=== PATIENT | female | born 1940 | race Caucasian/White ===

== ENCOUNTER 2016-08-13 16:50 | Emergency (ER) | payer OTHER, MEDICARE ==
[~2016-08-13] VITALS: Ht 165.1 cm; Wt 131.5 kg
[~2016-08-13 16:50] MED LIST: ALBUTEROL 3 ML3 ML INH; ALLEGRA180 MG PO; AMARYL4 MG PO; AMLODIPINE10 MG PO; ATORVASTATIN CA10 MG PO; BAYER ASPIRIN C81 MG PO; COMBIVENT1 ARO INH; HYTRIN5 MG PO; JANUVIA 100MG100 MG PO; KLOR-CON20 MEQ PO; LASIX40 MG PO; LOMOTIL 0.025 M1 TAB PO; NORVASC 5MG TAB5 MG PO; PREDNISONE 10MG10 MG PO; PREDNISONE10 MG PO; SINGULAIR10 MG PO; SPIRIVA 18 MCG18 MCG INH; SYMBICORT 160/41 PUF INH; SYNTHROID0.15 MG PO; VASOTEC20 MG PO
--- NOTE | 2016-08-13 17:14 | ED SKIN/ALLERGY COMPLAINT ---
History of Present Illness General Chief Complaint: General Adult Stated Complaint: ?INFECTED SUTURE SITE Source: patient, old records Exam Limitations: no limitations Vital Signs & Intake/Output Vital Signs & Intake/Output Vital Signs Date Time Temp Pulse Resp B/P B/P Pulse O2 O2 Flow FiO2 Mean Ox Delivery Rate 08/13 1753 98.3 101 24 153/75 92 Nasal 2.0L Cannula 08/13 1747 92 Nasal 2.0L Cannula 08/13 1738 Nasal 2.0L Cannula 08/13 1659 98.5 106 20 177/80 92 Nasal 3.0L Cannula ED Intake and Output 08/14 0000 08/13 1200 Intake Total Output Total Balance Patient 290 lb Weight Weight Estimated Measurement Method Allergies Coded Allergies: MDX - Morphine (UNKNOWN 03/03/11) OPIATE DERIVATIVES - MAKE HER LOOPY MDX - Opioid (Opioid) (MAKES HER 'LOOPY' 03/03/11) Reconcile Medications Albuterol Sulfate (Proventil) 2.5 MG/3 ML NEB 3 ML INH BID PRN COPD (Reported ) Amlodipine Besylate (Amlodipine) 10 MG TAB 1 TAB PO DAILY HTN Aspirin (Aylin Chewable Aspirin) 81 MG TAB.CHEW 1 TAB PO DAILY HEART HEALTH ( Reported) Atorvastatin Calcium (Lipitor) 10 MG TABLET 1 TAB PO DAILY CHOLESTEROL ( Reported) Budesonide/Formoterol Fumara (Symbicort 160-4.5 Mcg Inhaler) 160 MCG/4.5 MCG PUF 2 PUF INH TID COPD (Reported) DIPHENOXYLATE HCL/ATROPINE (Lomotil 2.5-0.025 MG Tablet) 2.5 MG-0.025 MG TABLET 1 TAB PO Q4 HRS NEEDED PRN DIARRHEA (Reported) Fexofenadine Hydrochloride (Lachelle) 180 MG TAB 1 TAB PO DAILY ALLERGIES ( Reported) Furosemide (Lasix) 40 MG TABLET 30 MG PO DAILY FLUID (Reported) Glimepiride (Amaryl) 4 MG TAB 1 TAB PO BID DM (Reported) IPRATROPIUM/ALBUTEROL SULFATE (Combivent Inhaler) 14.7 GM AER.W.ADAP 2 PUF INH 4 TIMES/DAY COPD (Reported) Levothyroxine Sodium (Synthroid) 0.15 MG TAB 0.15 MG PO DAILY AC THYROID ( Reported) Montelukast Sodium (Singulair) 10 MG TABLET 1 TAB PO DAILY COPD (Reported) Potassium Chloride (Klor-Con) 20 MEQ PDS 1 TAB PO DAILY SUPPLEMENT (Reported) Prednisone 10 MG TABLET 1 TAB PO 3XW INFLAMMATION (Reported) PLEASE RESTART TAKING PREDNISONE 10 MG THREE TIMES A WEEK AFTER YOU COMPLETE THE PREDNISONE TAPER GIVEN TO YOU. Prednisone 10 MG TAB 0 PO TAPER SWELLING OF TONGUE On Take 07/18 6 TABS 07/19-05/22 5 TABS 07/21-07/22 4 TABS 07/23-07/24 3 TABS 07/25-07/26 2 TABS 07/27-07/28 1 TAB THEN STOP Terazosin Hydrochloride (Hytrin) 5 MG CAP 1 TAB PO DAILY BP (Reported) Tiotropium Whitetail (Spiriva) 18 MCG CAP.W.DEV 1 CAP INH DAILY COPD (Reported) Triage Note: PT TO ED C/O ? INFECTION TO SUTURE SITE. PT HAD MOLL REMOVED NEAR/UNDER LEFT BREAST [address] TORRES. WAS SUPPOSED TO HAVE A F/U APPT LAST WEEK, BUT IT GOT CANCELLED. PT HAS NEW APPT ON TUESDAY 08/15. STATES SITE IS RED AND "ANGRY". DESCRIBES TENDER AND ACHY. HAD TEMP AT HOME OF 99.3, PT STATES "THAT IS A SLIGHT FEVER FOR ME". PT TAKEN TO ROOM 16 VIA W/C FOR PROVIDER EVAL. Triage Nurses Notes Reviewed? yes Onset: Abrupt Duration: week(s): (05/08), constant, getting worse Timing: recent history Severity: moderate Severity Numbers: 6 Location: torso No Modifying Factors: none Associated Symptoms: denies HPI: 76-year-old female with history of COPD on O2 2 L colon cancer, hypertension and high cholesterol presents the ER for evaluation with family complaining of a questionable infected suture site. The patient states 3 weeks ago she had a mole removed by Dr. torres. She states that she was unable to make her appointment 3 days ago for the sutures are BE removed and is scheduled to see him in 2 days. She states however for the past 2-1/2 weeks it has been progressively more red and painful and sensitive patient denies any discharge or bleeding. The patient reports to low-grade fevers at home of 99.3 which she states is a fever for her. She denies any other rashes to her skin. She denies shortness of breath worse than normal no cough congestion chest pain abdominal pain nausea or vomiting. She states she had amoxicillin left over which she took one dose of 3 days ago. (MORENA LUNDBERG) Past History Travel History Traveled to [place] past 21 day No Medical History Any Pertinent Medical History? see below for history Cardiovascular: hypertension, hyperlipidemia Respiratory: bronchitis, COPD, obstructive sleep apnea, CPAP AT NIGHT o2 2L Gastrointestinal: SBO COLON RESECTION DOROTHY Renal: ONLY 1 FUNCTIONING KIDNEY Musculoskeletal: osteoarthritis, SHERICE KNEE REPLACEMENTS SHERICE SHOULDER REPLACEMENTS Psychiatric: anxiety Endocrine: diabetes, hypothyroidism Blood Disorders: anemia Cancer(s): colon/rectal cancer, BASAL CELL CARCINOMA History of MRSA: No History of VRE: No History of CDIFF: No Pneumonia Vaccine: 01/01/05 Surgical History Surgical History: colon resection Psychosocial History Who do you live with Spouse Services at Home None What is your primary language Thai Tobacco Use: Quit >30 days ago ETOH Use: occasional use Illicit Drug Use: denies illicit drug use Family History Family History, If Any: patient was adopted Relation not specified for: *No pertinent family history Hx Contributory? No (MORENA LUNDBERG) Review of Systems Review of Systems Constitutional: Reports: see HPI. All Other Systems: Reviewed and Negative Comments Review of systems: See HPI, All other systems negative. Constitutional, no chills no fever, no malaise no weight loss HEENT: no sore throat no congestion Cardiovascular: No chest pain , no palpitation , no orthopnea Skin: see hpi Respiratory: No dyspnea no cough no sputum no hemoptysis GI: No nausea no vomiting, no diarrhea, no bloating/constipation : No dysuria No hematuria, no frequency, no discharge Muscle skeletal: No joint pain, no joint swelling, no back pain, no neck pain, Neurologic: No numbness no confusion, no headache Psych: No stress no depression,. Heme/endocrine: No bruising no bleeding Immunology: No lymphadenopathy (MORENA LUNDBERG) Physical Exam Physical Exam General Appearance: well developed/nourished, alert, awake Comments: Well-developed well-nourished patient in no apparent distress. HEENT: Atraumatic, extraocular motion intact Neck: Supple, FROM Back: FROM Cardiovascular: Regular rate and rhythms no murmurs rubs or gallops, Respiratory: Chest nontender.There were no bony deformities, no asymmetry. No respiratory distress. Patient speaking in full complete sentences. Wheezing bilaterally no rhonchi no rales Extremities: full range of motion Neuro: awake, alert, and oriented to person, place and time. There were no obvious focal neurologic abnormalities. Skin: Warm & dry; there is a 6 cm area of erythema surrounding these running sutures which appear intact there is no induration or fluctuance mild tenderness to palpation no discharge elicited no bleeding the skin is otherwise intact Psych: Mood affect normal, normal memory normal judgment. (MORENA LUNDBERG) Progress Differential Diagnosis: abscess/cellulitis, contact dermatitis, erythema multiforme, shingles, tinea Plan of Care: Current Medications Sig/Viridiana Start time Last Medication Dose Stop Time Status Admin Albuterol Sulfate 3 ML ONCE ONE 08/13 1729 UNVr 08/13 (Proventil) 08/13 Ipratropium Whitetail 2.5 ML ONCE ONE 08/13 1729 UNVr 08/13 (Atrovent) 08/13 Patient medicated with DuoNeb call was placed to her surgeon, case discussed with Dr. Paris agrees with plan case d/w dr Torres- advised to remove sutures, no need for abx at this time , will f/u withpt on monday Sutures removed by me no wound dehiscence. steri strips applied I had an extensive conversation regarding need for close follow up with their primary care physician this week as well as return precautions. I answered all of their questions, they feel comfortable with the plan and follow-up care. (MORENA LUNDBERG) Departure Departure Time of Disposition: 1842 Disposition: HOME OR SELF CARE Condition: Stable Clinical Impression Primary Impression: Visit for suture removal Secondary Impressions: Visit for wound check Referrals: FANNY CANO MD (PCP/Family) Additional Instructions: follow up with dr torres on monday as scheduled. Keep steri strips applied. warm compresses, return with any concerns Departure Forms: Customer Survey General Discharge Information (MORENA LUNDBERG) PA/[facility] Co-Sign Statement Statement: ED Attending supervision documentation- [X] I saw and evaluated the patient. I have also reviewed all the pertinent lab results and diagnostic results. I agree with the findings and the plan of care as documented in the PA's/[facility]'s documentation. [X] I have reviewed the ED Record and agree with the PA's/[facility]'s documentation. [] Additions or exceptions (if any) to the PAs/[facility]'s note and plan are summarized below: [] (AVIVA MONZON,JONATAN Patel) ED Attending Observation Initial Observation Note: I have seen and personally examined LORY WASSERMAN on 08/13/16 at 1740. I agree with the current emergency department documentation. The disposition (admission or discharge) is uncertain at this time, she needs a period of observation for the following reason(s): The ED Nurse caring for this patient has been personally informed as to what the patient is being observed for. (SHAJI MENDEZ,MORENA)
[2016-08-13 17:53] VITALS: BP 153/75
== END 2016-08-13 18:50 ==
LOC: ERH 16:50
DX: Z48.01 Encounter for change or removal of surgical wound dressing (principal)
CPT/HCPCS: 1263; 99281